=== PATIENT | male | born 1945 | race Caucasian/White ===

== ENCOUNTER 2019-11-06 10:06 | Emergency (ER) | payer MEDICARE, OTHER ==
[~2019-11-06] VITALS: Ht 188 cm; Wt 74.1 kg
[~2019-11-06 10:06] MED LIST: ADVAIR 100/28 DISKU1 IH; ADVAIR 100/28 DISKUS IH; ATROVENT INHALE14 GM IH; CIPRO 500MG TA500 MG PO
[2019-11-06 11:15] LABS: HEMOGLOBIN 13.7 g/dl (13.5-18.0); MEAN CELL VOLUME 95 fl (80.0-100.0); MEAN CORPUSCULAR HEMOGLOBIN 32 pg (27.0-31.0); MEAN CORPUSCULAR HGB CONC 33 g/dl (33.0-37.0); MEAN PLATELET VOLUME 10.5 fl (7.4-10.4); PLATELET COUNT 147 K/mm3 (130-400); RED BLOOD COUNT 4.32 M/mm3 (4.20-5.60)
[2019-11-06 11:19] LABS: INR 1.1 (0.8-3.0); PROTHROMBIN TIME 12.3 SECONDS (9.7-12.8)
[2019-11-06 11:33] LABS: ALANINE AMINOTRANSFERASE 31 U/L (4-49); ALBUMIN 3.8 gm/dL (3.5-5.0); ALKALINE PHOSPHATASE 84 U/L (50-136); ANION GAP 11 mmol/L (7-16); AST,SGOT 38 U/L (15-37); BILIRUBIN,TOTAL 0.6 mg/dL (0.0-1.0); BLOOD UREA NITROGEN 16 mg/dL (9-20); CALCIUM 8.5 mg/dL (8.4-10.2); CARBON DIOXIDE 21 mmol/L (22-30); CHLORIDE 108 mmol/L (98-107); CREATININE, serum 0.66 (0.66-1.25); GLUCOSE 97 mg/dL (74-106); POTASSIUM 3.7 mmol/L (3.4-5.0); SODIUM 140 mmol/L (137-145); TOTAL PROTEIN 6.6 gm/dL (6.4-8.2)
[2019-11-06 11:43] LABS: TROPONIN-I < 0.012 ng/mL (0.000-0.035)
[2019-11-06 11:44] LABS: BAND 14 % (0-10); C-REACTIVE PROTEIN 18.1 mg/dL (0.0-0.9); LYMPHOCYTE 7 % (20.0-51.0); METAMYELOCYTE 2 % (0-0); NEUTROPHILS 70 % (42.0-75.2); PLATELET ESTIMATE NORMAL (NORMAL)
[2019-11-06 12:00] LABS: COLLECTION METHOD CLEAN CATCH
[2019-11-06 12:07] LABS: MUCOUS Present /lpf; PH 5 (5-8); SQUAMOUS EPITHELIAL 0-2 /hpf; URINE APPEARANCE Hazy; URINE BACTERIA Many /hpf; URINE BILIRUBIN Negative (NEGATIVE); URINE BLOOD 2+ (NEGATIVE); URINE COLOR Amber; URINE GLUCOSE Negative (NEGATIVE); URINE KETONE 1+ (NEGATIVE); URINE LEUKOCYTE ESTERASE 1+ (NEGATIVE); URINE NITRATE Positive (NEGATIVE); URINE PROTEIN(semi-quant) 1+ (NEGATIVE); URINE UROBILINOGEN >=4.0 mg/dL (NEGATIVE)
[2019-11-06] MEDS ORDERED: OMNICEF 300MG300 MG PO ×2 (12:17→13:14)
[2019-11-06] MEDS ORDERED: ZOFRAN ODT8 MG PO (12:18)
[2019-11-06 13:15] VITALS: BP 120/89; PULSE 79; TEMP 98.6
== END 2019-11-06 13:15 | disposition home or self-care (01) ==
LOC: COL.ER 10:06
PROVIDERS: Emergency Medicine
DX: N39.0 Urinary tract infection, site not specified (principal); Z87.442 Personal history of urinary calculi
CPT/HCPCS: A4216; J0696; J2405; J7030

== ENCOUNTER 2020-01-27 14:30 | Observation (INO) | payer MEDICARE ==
[~2020-01-27] VITALS: Ht 188 cm; Wt 73.5 kg
[~2020-01-27 14:30] MED LIST changes: +OMNICEF 300MG300 MG PO; +ZOFRAN ODT8 MG PO
[2020-01-27] MEDS ORDERED: PROAIR HFA0.09 MG/AC IH (14:57)
[2020-01-27 15:12] LABS: BASO # 0.1 (0.0-0.2); BASO % 0.9 % (0.0-2.0); EOS # 0.1 (0.0-0.7); EOS % 1.8 % (0-4.0); GRAN # 4.8 (1.4-6.5); GRAN % 72.8 % (42.2-75.2); HEMATOCRIT 41.6 % (42.0-52.0); HEMOGLOBIN 13.8 g/dl (13.5-18.0); LYMPH # 1.1 (1.2-3.4); LYMPH % 16.8 % (20.0-51.0); MEAN CELL VOLUME 95 fl (80.0-100.0); MEAN CORPUSCULAR HEMOGLOBIN 31 pg (27.0-31.0); MEAN CORPUSCULAR HGB CONC 33 g/dl (33.0-37.0); MEAN PLATELET VOLUME 9.8 fl (7.4-10.4); MONO # 0.5 (0.1-0.6); MONO % 7.5 % (1.7-9.3); PLATELET COUNT 196 K/mm3 (130-400); REDCELL DISTRIBUTION WIDTH-CV 13.7 % (11.5-14.5)
[2020-01-27 15:21] LABS: ALANINE AMINOTRANSFERASE 26 U/L (4-49); ALBUMIN 4.1 gm/dL (3.5-5.0); ALKALINE PHOSPHATASE 67 U/L (50-136); ANION GAP 6 mmol/L (7-16); AST,SGOT 30 U/L (15-37); BILIRUBIN,TOTAL 0.5 mg/dL (0.0-1.0); BLOOD UREA NITROGEN 24 mg/dL (9-20); CARBON DIOXIDE 28 mmol/L (22-30); CHLORIDE 106 mmol/L (98-107); CREATININE, serum 0.95 (0.66-1.25); GLUCOSE 98 mg/dL (74-106); LIPASE 54 U/L (23-300); POTASSIUM 4.2 mmol/L (3.4-5.0); SODIUM 140 mmol/L (137-145); TOTAL PROTEIN 6.8 gm/dL (6.4-8.2)
[2020-01-27 15:22] LABS: C-REACTIVE PROTEIN < 0.5 mg/dL (0.0-0.9)
[2020-01-27 15:39] LABS: TROPONIN-I < 0.012 ng/mL (0.000-0.035)
[2020-01-27 17:02] VITALS: BP 153/88; PULSE 77; TEMP 97.7
[2020-01-27] MEDS ORDERED: ASPIRIN 81M81 MG/TA2 PO (17:30)
--- NOTE | 2020-01-27 18:13 | NUR ---
Admission assessment completed, alert/oriented, vital signs stable, reports very mild left sided ches disocmfort at this time, heart RRR/ SR on tele, distal pulses are palpable, lungs CTA/ no resp.difficulty associated with these pain, home meds/allergies/pharmacy reviewed with patient, at bedside, cardiology consulted and plans for stress test in a.m., NPO, patient is independent and denies other needs at this time
--- NOTE | 2020-01-27 19:20 | NUR ---
Received reprot from Reji. Seen patient awake, lying in bed. He reports mild pain on his left side chest. Instructed on NPO by midnight. He is alert, oriented and independent. Lungs are clear.
[2020-01-27 19:35] VITALS: BP 137/88; PULSE 63; TEMP 98.1
[2020-01-27 23:44] VITALS: BP 124/81; PULSE 67; TEMP 97.6
[2020-01-28] VITALS (8 sets, daily range): BP systolic 113–138; BP diastolic 69–80; PULSE 72–98; TEMP 97.7–98.1
--- NOTE | 2020-01-28 05:11 | NUR ---
Patient has no complains of chest pain. Maintained on NPO for lexisxan this morning. Patient had an uneventful night.
[2020-01-28 06:45] LABS: ANION GAP 5 mmol/L (7-16); BLOOD UREA NITROGEN 18 mg/dL (9-20); CALCIUM 8.7 mg/dL (8.4-10.2); CARBON DIOXIDE 27 mmol/L (22-30); CHLORIDE 105 mmol/L (98-107); CHOLESTEROL 140 mg/dL (120-200); CREATININE, serum 0.62 (0.66-1.25); GLUCOSE 81 mg/dL (74-106); HDL CHOLESTEROL 46 mg/dL; LDL CHOLESTEROL 75 mg/dL; POTASSIUM 3.5 mmol/L (3.4-5.0); SODIUM 137 mmol/L (137-145); TRIGLYCERIDE 96 mg/dL
[2020-01-28 06:50] LABS: BASO # 0.1 (0.0-0.2); BASO % 0.8 % (0.0-2.0); EOS # 0.2 (0.0-0.7); GRAN # 3.8 (1.4-6.5); GRAN % 63.2 % (42.2-75.2); HEMATOCRIT 40.8 % (42.0-52.0); HEMOGLOBIN 13.8 g/dl (13.5-18.0); LYMPH # 1.4 (1.2-3.4); LYMPH % 23.5 % (20.0-51.0); MEAN CELL VOLUME 93 fl (80.0-100.0); MEAN CORPUSCULAR HEMOGLOBIN 31 pg (27.0-31.0); MEAN CORPUSCULAR HGB CONC 34 g/dl (33.0-37.0); MEAN PLATELET VOLUME 10.4 fl (7.4-10.4); MONO # 0.5 (0.1-0.6); MONO % 8.3 % (1.7-9.3); PLATELET COUNT 202 K/mm3 (130-400); RED BLOOD COUNT 4.39 M/mm3 (4.20-5.60); REDCELL DISTRIBUTION WIDTH-CV 13.3 % (11.5-14.5)
[2020-01-28 06:52] LABS: TROPONIN-I < 0.012 ng/mL (0.000-0.035)
--- NOTE | 2020-01-28 09:32 | NUR ---
PT DENIES PAIN OR DISCOMFORT, PT STATED LEXISCAN WENT WELL THIS MORNING. PT SWALLOWED PILLS WITH SIP OF WATER WELL. IN PLEASANT MOOD. NO OTHER NEEDS AT THIS TIME. PULSES STRONG WHITNEY UPPERS AND LOWERS. REMAINING NPO UNTIL RESULTS OF LEXISCAN COME BACK.
--- NOTE | 2020-01-28 10:18 | NUR ---
SW met with the patient to discuss discharge plan. The patient lives in [place] with his , Miesha (ph#[phone]). He reports independence with ADLs and does not have any DME. The patient's PCP is Dr. Nancy Raphael and he receives his medications at [facility]. He reports no difficulties obtaining his meds. The patient's advanced directives are in EMR. His DPOA-HC is his nephew, Corey Juares (ph#[phone]). The patient plans to return home with his upon discharge. No additional needs at this time.
[2020-01-28] MEDS ORDERED: NORVASC 5MG5 MG/TAB PO (14:42)
--- NOTE | 2020-01-28 17:23 | NUR ---
PT TAKEN OUT VIA WHEELCHAIR WITH AND [facility] [employer]PL[employer]. IV DC'D, DISCHARGE EDUCATION PROVIDED, BELONGINGS TAKEN WITH PT. NO OTHER NEEDS AT THIS TIME.
== END 2020-01-28 17:25 | disposition home or self-care (01) ==
LOC: COL.ER 14:30 → MEDICAL 16:15
PROVIDERS: Emergency Medicine; Physician Assistant; ADMIT Internal Medicine
DX: R07.9 Chest pain, unspecified (principal); I10 Essential (primary) hypertension; J45.909 Unspecified asthma, uncomplicated; Z79.82 Long term (current) use of aspirin
CPT/HCPCS: A9500; G0378; J1650; J2785

== ENCOUNTER 2020-03-25 07:59 | Outpatient (CLI) | payer MEDICARE ==
[~2020-03-25] VITALS: Ht 188.1 cm; Wt 77.0 kg
[~2020-03-25 07:59] MED LIST changes: +ASPIRIN 81M81 MG/TA2 PO; +NORVASC 5MG5 MG/TAB PO; +PROAIR HFA0.09 MG/AC IH
[2020-03-25] MEDS ORDERED: PRINIVIL10 MG PO (08:24)
[2020-03-25 08:30] VITALS: BP 130/92; PULSE 76; TEMP 96.7
[2020-03-25 08:58] LABS: HEMATOCRIT 43.2 % (42.0-52.0); HEMOGLOBIN 14.6 g/dl (13.5-18.0); MEAN CELL VOLUME 93 fl (80.0-100.0); MEAN CORPUSCULAR HEMOGLOBIN 31 pg (27.0-31.0); MEAN CORPUSCULAR HGB CONC 34 g/dl (33.0-37.0); MEAN PLATELET VOLUME 10.5 fl (7.4-10.4); PLATELET COUNT 217 K/mm3 (130-400); RED BLOOD COUNT 4.66 M/mm3 (4.20-5.60); REDCELL DISTRIBUTION WIDTH-CV 13.2 % (11.5-14.5)
[2020-03-25 09:00] LABS: PROTHROMBIN TIME 11.7 SECONDS (9.7-12.8)
[2020-03-25 09:05] LABS: ALBUMIN 4.2 gm/dL (3.5-5.0); BILIRUBIN,TOTAL 0.9 mg/dL (0.0-1.0); CALCIUM 8.9 mg/dL (8.4-10.2); CREATININE, serum 0.74 (0.66-1.25); POTASSIUM 3.9 mmol/L (3.4-5.0); TOTAL PROTEIN 6.9 gm/dL (6.4-8.2)
[2020-03-25 10:30] VITALS: BP 114/80; PULSE 75
[2020-03-25 10:45] VITALS: BP 126/82; PULSE 71
[2020-03-25 11:00] VITALS: BP 124/88; BP 126/91; PULSE 70
[2020-03-25 11:15] VITALS: BP 126/91; PULSE 70
--- NOTE | 2020-03-25 11:25 | NUR ---
Pt tolerates sips of water without difficulty. VSS. Gait steady around room. INT DC'd with catheter intact, site wrapped with coban. Pt assisted to waiting room to , who will be driving him home. This nurse verifies that does not have questions prior to departing, both express understanding.
== END 2020-03-25 11:25 | disposition home or self-care (01) ==
LOC: COL.RAD 07:59
PROVIDERS: Internal Medicine Adult Congenital Heart Disease
DX: I08.1 Rheumatic disorders of both mitral and tricuspid valves (principal); I70.0 Atherosclerosis of aorta
CPT/HCPCS: J2704; J7120

== ENCOUNTER 2022-04-18 07:08 | Outpatient (CLI) | payer MEDICARE ==
[2022-04-18] VITALS (7 sets, daily range): BP systolic 130–145; BP diastolic 84–101; PULSE 57–77; TEMP 97.6
[~2022-04-18] VITALS: Ht 188 cm; Wt 70.9 kg
[~2022-04-18 07:08] MED LIST changes: +PRINIVIL10 MG PO
[2022-04-18 07:51] LABS: BASO # 0.1 K/mm3 (0.0-0.2); EOS # 0.4 K/mm3 (0.0-0.7); EOS % 7.2 % (0.0-4.0); GRAN # 3.2 K/mm3 (1.4-6.5); GRAN % 62.2 % (42.2-75.2); HEMATOCRIT 41.7 % (42.0-52.0); HEMOGLOBIN 14.1 g/dl (13.5-18.0); LYMPH % 19.2 % (20.0-51.0); MEAN CELL VOLUME 93 fl (80.0-100.0); MEAN CORPUSCULAR HEMOGLOBIN 31 pg (27-31); MEAN CORPUSCULAR HGB CONC 34 g/dl (33.0-37.0); MEAN PLATELET VOLUME 10.2 fl (7.4-10.4); MONO # 0.5 K/mm3 (0.1-0.6); MONO % 10.2 % (1.7-9.3); PLATELET COUNT 181 K/mm3 (130-400); REDCELL DISTRIBUTION WIDTH-CV 12.8 % (11.5-14.5)
[2022-04-18 07:58] LABS: PROTHROMBIN TIME 11.9 SECONDS (9.7-12.8)
[2022-04-18 08:01] LABS: CALCIUM 8.9 mg/dL (8.4-10.2); CREATININE, serum 0.79 mg/dL (0.72-1.25); POTASSIUM 4.1 mmol/L (3.5-4.5)
--- NOTE | 2022-04-18 10:03 | NUR ---
Pt alert, denies concerns following JEFFERY procedure. Report was recieved from CHITRA Yo. pharmaceutical laboratory technician techs in room to set up for loop insert. VS cycling q15 mins.
--- NOTE | 2022-04-18 11:20 | NUR ---
DC paperwork reviewed with pt and , both express understanding. Pt is steady on feet to restroom. He's tolerated water without issue. Dressing over loop insert site remains clean, dry and intact. IV DC'd, site wrapped with coban. Pt is assisted out to 's car by wheelchair with belongings.
== END 2022-04-18 11:20 | disposition home or self-care (01) ==
LOC: COL.CAR 07:08
PROVIDERS: Internal Medicine Adult Congenital Heart Disease
DX: I34.0 Nonrheumatic mitral (valve) insufficiency (principal); Z28.311 Partially vaccinated for COVID-19
CPT/HCPCS: C1764; J2704; J7120